=== PATIENT | male | born 1975 | race Caucasian/White ===

== ENCOUNTER 2017-08-15 20:22 | Inpatient (IN) | payer MEDICAID ==
[~2017-08-15] VITALS: Ht 185.4 cm; Wt 112.1 kg
[~2017-08-15 20:22] MED LIST: ALBUTEROL0.09 MG/Ac IH; CIPRO 500MG TA500 MG PO; DICLOFENAC 50MG50 MG PO; DICLOFENAC SODI75 M2 PO; FLAGYL 500MG.500 MG PO; GABAPENTIN300 MG PO; GABAPENTIN800 MG PO; HYDROCHLOROTHIA25 M1 PO; HYDROCODONE-APA1 TA1 PO; HYDROCODONE-APA1 TA2 PO; IBUPROFEN800 MG PO; LASIX20 MG PO; LEVAQUIN750 MG PO; LORAZEPAM0.5 MG/TAB FT; LORTAB 5/500 501 TAB PO; LOVENOX 150150 MG/ML SC; METOPROLOL25 MG PO; MOTRIN600 M1 PO; MOTRIN600 MG PO; NOMEDS XX; PERCOCET 325 MG1 TA3 PO; PHENERGAN 25MG.25 M1 PO; POTASSIUM CHLO10 ME3 PO; PRILOSEC20 M1 PO; TOPROL XL 25MG25 MG PO; TYLENOL W/CODEI1 TA2 PO; ZITHROMAX TRI-500 MG PO; ZOFRAN ODT8 MG PO
[2017-08-15 20:26] VITALS: BP 137/78
[2017-08-15] MEDS ORDERED: AMLO5TAB PO (20:33)
[2017-08-15] MEDS ORDERED: [UNRECOGNIZED DRUG - OTHER] PO (20:34)
[2017-08-15 21:12] LABS: URINE BILIRUBIN - DIPSTICK NEGATIVE (NEG); URINE BLOOD NEGATIVE (NEG)
[2017-08-15 21:17] LABS: HEMOGLOBIN 14.1 g/dL (14.1-18.0); LYMPH # 3.4 K/mm3 (0.7-4.5)
--- NOTE | 2017-08-15 21:17 | Emergency Room Report ---
History of Present Illness Time Seen by [id number] Presenting Problem in Triage Pt arrived:Walked Presenting Problem:C/O SEVERE ABDOMINAL PAIN X 6 DAYS WITH VOMITING. C/O CONSTIPATION. LAST BM 08/14/17. STATES STOOL WAS BROWN/BLACK. 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 Y Clinical Suspician of Infection? Y Mental Status: 1 - Regular (Normal Baseline) Sepsis Risk:Low Sepsis Risk Have you (or family members/close friends) recently traveled outside the [place]? N If Yes, where/when: Have you had exposure to infectious disease within the past month? N TB? Other? Specify: Source patient, RN notes reviewed, family, old records Exam Limitations no limitations Comment pt with upper abd pain which has been progressive over the last few days with no gross melena - used pepto and multiple otc meds - has hx of gerd and on meds - no etoh Cardiac Chest Pain Chest pain indicative of cardiac No Timing/Duration this evening Severity moderate ALLERGIES Coded Allergies: codeine (RASH, N/V 11/05/15) heparin (DIFF BREATHING 11/05/15) Home Medications Active Scripts Metoprolol Succinate Xl (Toprol Xl) 25 MG PO DAILY #30 TAB Ref 1 Prov: 11/05/15 Reported Medications Gabapentin 300 MG PO TID #90 CAPSULE Amlodipine Besylate (Amlodipine) 5 MG PO DAILY #30 RANITIDINE HCL (Ranitidine HCl) 75 MG PO DAILY #30 History Medical History General CAD? No Angina: No AK: No Hypertension? Yes Hyperlipidemia? No CHF? No DVT? No PE? Yes COPD? No Asthma? No Anemia? No GERD? No Gastric ulcers? No GI Bleed? No Hernia? No Thyroid Problems? No Hypothyroidism? No CVA? No Seizures? No Diabetes? No Renal Insuffiency? No End Stage Renal Disease? No UTI? No Stones? No BPH? No GB Disease: Yes Nephritic Syndrome? No Asplenia? No Hepatitis? No Sickle Cell Disease? No Arthritis? Yes Migraines? No Cataracts? No Glaucoma? No MRSA? Yes HIV? No TB? No Anxiety? No Depression? No Cancer? No Immunization Hx DT/Tetanus 5-10 Years Ago Flu Refused Pneumonia Refuses Surgical Hx Previous Surgery?Y LEFT FOOT/ANKLE FX REPAIR GALLBLADDER Family History Family Hx Diabetes Yes CAD Yes Hypertension Yes Hyperlipidemia Yes Cancer Yes TB No Social History Smoking Hx Smoker: Current Every Day Smoker Tobacco: Yes Type Cigarettes Packs/day 1 1/2 - 2 Packs Alcohol Alcohol: No Drugs none Review of Systems All Other Systems Reviewed and Negative Constitutional denies fever Eyes denies drainage ENT denies: ear discharge, epistaxis, throat pain. Respiratory denies cough, denies wheezing Cardiovascular denies chest pain, denies syncope Gastrointestinal see HPI, abdominal pain, denies diarrhea, nausea, vomiting Genitourinary denies: dysuria, frequency, hesitancy, hematuria. Musculoskeletal denies back pain, denies joint pain, denies joint swelling, denies neck pain Skin denies rash Psychiatric/Neurological denies headache, denies seizure Physical Exam Vital Signs Vital Signs Date Time Temp Pulse Resp B/P Pulse O2 O2 Flow FiO2 Ox Delivery Rate 08/15 2139 98.5 91 26 139/76 100 08/15 2132 20 08/15 2026 98.2 85 20 137/78 96 - WBC >12,000 or <4,000 or 10% bands? 2 or more SIRS Criteria Met? B/P:139/76 MAP:97 Creatinine >2.0? UA output<0.5ml/kg/hr for 2 hrs? Platelet count >100,000? Lactate >2.0mmol/1? INR >1.2 or PTT > than 60 sec? Evidence of Organ Dysfunction? Provider documented clinical suspician of infection? Y Sepsis Criteria Count: 1 Sepsis Risk: Low Sepsis Risk General Appearance no apparent distress Eye Exam - bilateral eye PERRL, bilateral eye EOMI Comment no icterus Ear, Nose, Throat normal ENT inspection Neck supple Respiratory Status No: respiratory distress. Lung Sounds bilateral: lungs clear. 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 No Results/Orders Laboratory Tests 08/15/17 2100: Lactic Acid 1.2 08/15/17 2100: Triglycerides Pending, Cholesterol Pending, LDL Cholesterol Pending, VLDL Cholesterol Pending, HDL Cholesterol Pending 08/15/17 2100: Sodium 137, Potassium 3.9, Chloride 101, Carbon Dioxide 28, BUN 8, Creatinine 1.0, Estimated Creat Clear 142, Estimated GFR (MDRD) 82, Glucose 108 H, Calcium 9.2, Total Bilirubin 0.1 L, AST 28, ALT 41, Alkaline Phosphatase 88, Total Protein 7.4, Albumin 3.6, Globulin 3.8 H, Albumin/Globulin Ratio 0.9 L, Amylase 89, Lipase 1041 H, WBC 11.9 H, RBC 4.46 L, Hgb 14.1, Hct 41.4 L, MCV 92.9, RDW 14.1, Plt Count 265, MPV 8.8, Gran % 62.3, Gran # 7.4, Lymphocytes % 29.0, Monocytes % 5.9, Eosinophils % 2.4, Basophils % 0.4, Lymphocytes # 3.4, Monocytes # 0.7, Eosinophils # 0.3, Basophils # 0.1, PUBS MCHC 34.1, MCH 31.7 H , Urine Color YELLOW, Urine Appearance CLEAR, Urine pH 7.0, Ur Specific [place] 1.010, Urine Protein NEGATIVE, Urine Ketones NEGATIVE, Urine Blood NEGATIVE, Urine Nitrate NEGATIVE, Urine Bilirubin NEGATIVE, Urine Urobilinogen 0.2, Ur Leukocyte Esterase NEGATIVE, Urine RBC NONE, Urine WBC OCC, Ur Squamous Epith Cells 3-5, Urine Bacteria TRACE, Urine Glucose NEGATIVE Current Medication Orders Sig/Lazaro Start time Last Medication Dose Route Stop Time Status Admin Metoclopramide HCl 0 .STK-MED ONE 08/15 2136 DC .ROUTE Famotidine 20 MG ONCE ONE 08/15 2130 DC 08/15 IV 08/15 Metoclopramide HCl 10 MG ONCE ONE 08/15 2130 DC 08/15 IVP 08/15 Morphine Sulfate 4 MG ONCE ONE 08/15 2130 DCr 08/15 IV 08/15 Ondansetron HCl 4 MG ONCE ONE 08/15 2130 DC 08/15 IV 08/15 Sodium Chloride 10 ML PRN PRN 08/15 2130 AC IV 08/16 2116 Sodium Chloride 8 ML ONCE ONE 08/15 2130 DC 08/15 IV 08/15 Famotidine 0 .STK-MED ONE 08/15 2126 DC IV Ondansetron HCl 0 .STK-MED ONE 08/15 2126 DC .ROUTE Sodium Chloride 0 .STK-MED ONE 08/15 2126 DC IV Morphine Sulfate 0 .STK-MED ONE 08/15 2125 DCr .ROUTE Sodium Chloride 1,000 ML .STK-MED ONE 08/15 2108 DC IV Sodium Chloride 1,000 ML .Q1H1M 08/15 2045 DC 08/15 IV 08/15 Sodium Chloride 10 ML PRN PRN 08/15 2045 AC IV 08/16 2036 Orders Procedure Date/time Status DIET-NOTHING BY MOUTH 08/16 B Active LIPID PROFILE 08/15 2200 Active Decision to admit 08/15 2200 Active IV SALINE LOCK 08/[address] ABD/PELVIS REQ 08/15 2036 Complete CULTURE, BLOOD 08/15 2036 Active URINALYSIS/COMPLETE 08/15 2036 Complete LIPASE 08/15 2036 Complete LACTIC ACID 08/15 2036 Complete CBC WITH AUTO DIFF 08/15 2036 Complete CHEM 12 PROFILE 08/15 2036 Complete AMYLASE 08/15 2036 Complete XRAY/CT/US XRAY/CT/US CT abdomen, pelvis CT interpretation by discussed w/radiologist Time results known: 2216 CT Results abnormal (pancreatitis) Departure Departure Time of Disposition 2216 Disposition Still a Patient Clinical Impression Primary Impression: Pancreatitis, acute Qualifiers: Pancreatitis type: unspecified pancreatitis type Acute pancreatitis complication: unspecified Qualified Code: K85.90 - Acute pancreatitis without necrosis or infection, unspecified Condition STABLE Additional Instructions discussed with dr blessing YU Critical Care Critical Care No at [id number]
--- NOTE | 2017-08-15 21:48 | RADIOLOGY REPORT PS360 ---
CT ABD PELVIS W/O CONTRAST HISTORY: ABD PAIN Patient Age: 42 years: Male Ordering Physician: Gael Hummel MD TECHNIQUE: Helical CT scanning through abdomen and pelvis with no oral nor IV contrast utilized. Sagittal and coronal reconstructions on CT workstation. COMPARISON :Previous CT abdomen pelvis August 2015. FINDINGS Lung bases no acute findings. Minimal linear scarring right CP angle right base Abdomen pelvis. The lack of oral and IV contrast decreases sensitivity Liver unremarkable. Spleen unremarkable. Adrenal satisfactory. Gallbladder is been removed. The. Kidneys. No urinary tract calculi nor obstruction. Pancreas. Subtle Diffuse hazy appearance in the peripancreatic fat, most compatible with pancreatitis. aorta Clinical correlation required. Associated some subtle hazy changes seen extending inferiorly from the pancreas & just anterior to the. No pseudocyst. There are no no fluid collections. No hemorrhagic areas. : No biliary or pancreatic ductal dilatation. No calcifications are seen along the common duct nor at head of pancreas Pelvis urinary bladder appears satisfactory. Normal prostate. Osseous structures unremarkable. Moderate fluid throughout small bowel but no bowel dilatation. Moderate stool throughout large bowel. Appendix normal terminal ileum unremarkable IMPRESSION 1. Slight Hazy appearance in the fat about the pancreas likely reflecting pancreatitis. Clinical correlation required .. Acute pancreatitis with No complicating features evident . No ductal dilatation 2. Cholecystectomy..
--- OUTSIDE RECORDS SUMMARY | 2017-08-15 22:08 | External Medical Summary Rpt | CCD ---
Demographics Preferred Language Slovenian Marital Status Unknown Confucianism Affiliation Unknown Race Unknown Ethnic Group Unknown Author Author , TALAT GILLILAND Address Unknown Phone Immunization No patient found.
--- OUTSIDE RECORDS SUMMARY | 2017-08-15 22:08 | External Medical Summary Rpt | CCD ---
Demographics Preferred Language Cymro Marital Status Unknown [facility] Affiliation Unknown Race Unknown Ethnic Group Unknown Author Author , TALAT GILLILAND Address Unknown Phone Immunization No patient found.
--- OUTSIDE RECORDS SUMMARY | 2017-08-15 22:08 | External Medical Summary Rpt | CCD ---
Author Author Conduent Organization Condu[employer] Address Unknown Phone Unavailable Purpose Continuity of Care Document - through 2016
--- OUTSIDE RECORDS SUMMARY | 2017-08-15 22:08 | External Medical Summary Rpt | CCD ---
Author Author , TALAT GILLILAND Address Unknown Phone [email or web address] Care Team Providers Care Forest Ecologist Name Role Phone ISABELL GILLIS MD, Unavailable Unavailable ISABELL Kelly MD, Unavailable Unavailable Masha DICKEY DO, Unavailable Unavailable KORI DICKEY DO Purpose Continuity of Care Document - 06-24-2013 through 2016 Problems Code Diagnosis DOS Provider Status K21.9 Gastro-esop 02-25-2017 hageal reflux disease without esophagitis I10 Essential 02-25-2017 (primary) hypertensio n 305.1 305.1 10-16-2013 [place] TOBACCO USE [facility] 486 486 10-16-2013 [place] PNEUMONIA, [facility] ORGANISM Hospital NOS 401.9 401.9 08-20-2013 [place] HYPERTENSIO [facility] 882.0 882.0 OPEN 08-20-2013 [place] WOUND OF [facility] E917.9 E917.9 08-20-2013 [place] STRUCK BY [facility] OBJ/PERSON Hospital [facility] V06.1 V06.1 08-20-2013 [place] DIPHTHERIA- [facility] TETANUS-PER Hospital TUSSIS, COMBINED [DTP] [DTAP] V14.8 V14.8 08-20-2013 [place] HX-DRUG 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 Ac 5- ti 3( ve 2. 5) MG /3 ML AD 49 11 0 No AC 28 -0 EL 10 7- Lo 40 20 ng TD 01 13 er AP 0 Ac ti AL ve LI 00 11 0 No DO 40 -0 CA 93 7- Lo IN 17 20 ng E 80 13 er 1% 1 -E Ac PI ti ve 1: 10 0, 00 0 TR 65 11 0 No AM 16 -0 AD 20 7- Lo OL 62 20 ng 71 13 er HC 0 L Ac 50 ti ve MG TA BL ET Sa 63 09 0 No li 80 -1 ne 70 1- Lo 10 20 ng Fl 07 13 er us 5 h Ac 10 ti ML ve Sy ri ng e 63 09 0 No PI 73 -1 RI 90 1- Lo N 43 20 ng 81 40 13 er 1 MG Ac ti CH ve EW AB LE TA BL ET Vital Signs 10-16-2013 19:30 Name Value Interpretat Reference Comment ion Range Body 98.8 [degF] Temperature BP 66 mm[Hg] Diastolic BP Systolic 136 mm[Hg] Heart 91 /min Rate/Pulse O2% 96 % Respiratory 21 /min Rate 10-16-2013 19:29 Name Value Interpretat Reference Comment ion Range Body 98.8 [degF] Temperature 10-16-2013 18:57 Name Value Interpretat Reference Comment ion Range BP 85 mm[Hg] Diastolic BP Systolic 141 mm[Hg] Heart 76 /min Rate/Pulse O2% 96 % Respiratory 20 /min Rate 08-20-2013 18:48 Name Value Interpretat Reference Comment ion Range Body 98.2 [degF] Temperature BP 94 mm[Hg] Diastolic BP Systolic 144 mm[Hg] Heart 85 /min Rate/Pulse O2% 96 % Respiratory 20 /min Rate 08-20-2013 17:42 Name Value Interpretat Reference Comment ion Range BP 90 mm[Hg] Diastolic BP Systolic 132 mm[Hg] Heart 83 /min Rate/Pulse O2% 96 % Respiratory 20 /min Rate 06-24-2013 19:58 Name Value Interpretat Reference Comment ion Range Body 98.3 [degF] Temperature BP 89 mm[Hg] Diastolic BP Systolic 157 mm[Hg] Heart 75 /min Rate/Pulse O2% 98 % Respiratory 16 /min Rate 06-24-2013 18:20 Name Value Interpretat Reference Comment ion Range BP 91 mm[Hg] Diastolic BP Systolic 141 mm[Hg] Heart 74 /min Rate/Pulse O2% 96 % Respiratory 18 /min Rate Results Labs Lab Lab Date Result Refere Interp Status Commen Order Detail nces retati t Range on Urinalysis dipstick W Reflex Microscopic panel in Urine (08-15-2017 21:00) Bacteri TRACE O complet a 017 ed [Presen 21:00 ce] in Urine sedimen t by Light microsc opy Erythro NONE 0 complet cytes 017 ed [Presen 21:00 ce] in Urine sedimen t by Light microsc opy Epithel 3-5 OCC complet ial 017 ed cells.s 21:00 quamous [Presen ce] in Urine sedimen t by Microsc opy high power field Urinalysis dipstick W Reflex Microscopic panel in Urine (08-15-2017 21:00) Appeara CLEAR CLEAR complet nce of 017 ed Urine 21:00 Bilirub NEGATIV NEG complet in 017 E ed [Presen 21:00 ce] in Urine by Test strip Erythro NEGATIV NEG complet cytes 017 E ed [Presen 21:00 ce] in Urine Color YELLOW YELLOW complet of 017 ed Urine 21:00 Ketones NEGATIV NEG complet 017 E ed [Presen 21:00 ce] in Urine by Automat ed test strip Mucus NEGATIV NEG complet [Presen 017 E ed ce] in 21:00 Urine sedimen t by Light microsc opy Nitrite NEGATIV NEG complet 017 E ed [Presen 21:00 ce] in Urine by Test strip Urobili 0.2 NEG complet nogen 017 ed [Presen 21:00 ce] in Urine by Test strip STREP SCREEN (RAPID) (10-16-2013 18:20) STREP NEGATIV complet SCREEN 014 E ed (RAPID) 18:20 COMPREHENSIVE METABOLIC PANEL (06-24-2013 17:50) Glucose 11- 89 74-106 complet 013 mg/dL ed Bld-mCn 17:50 c BUN 06-24- 5 mg/dL 7-18 complet Bld-mCn 013 ed c 17:50 Creat 06-24- 1.1 0.8-1.3 complet SerPl-m 013 mg/dL ed Cnc 17:50 ESTIMAT 06-24- 139 50-200 complet ED 013 ML/MIN ed CREATIN 17:50 INE CLEARAN CE GFR 06-24- 75 Greater complet (ESTIMA 013 ML/MIN than ed KAT) 17:50 60 Sodium 11- 140 136-145 complet SerPl-s 013 mmoL/L ed Cnc 17:50 Potassi 3.2 3.5-5.1 complet um 013 mmoL/L ed SerPl-s 17:50 Cnc Chlorid 104 98-107 complet e 013 mmoL/L ed SerPl-s 17:50 Cnc CO2 06-24- 27 21.0-32 complet SerPl-s 013 mmoL/L .0 ed Cnc 17:50 Calcium 11- 8.0 8.5-10. complet 013 mg/dL 1 ed SerPl-m 17:50 Cnc Prot 06-24- 6.3 6.4-8.2 complet SerPl-m 013 gm/dL ed Cnc 17:50 Albumin 06-24- 3.3 3.4-5.0 complet 013 gm/dL ed SerPl-m 17:50 Cnc Globuli 06-24- 3.0 1.3-3.2 complet n 013 gm/dL ed Ser-mCn 17:50 c Albumin 11- 1.1 UNK 1.1-1.8 complet /Glob 013 ed SerPl-m 17:50 Rto Bilirub 06-24- 0.2 0.2-1.0 complet 013 mg/dL ed SerPl-m 17:50 Cnc AST 11- 42 U/L 15-37 complet SerPl-c 013 ed Cnc 17:50 ALT 11- 62 U/L 30-65 complet SerPl-c 013 ed Cnc 17:50 ALP 11- 97 U/L 50-136 complet SerPl-c 013 ed Cnc 17:50 BNP Bld-mCnc (06-24-2013 17:50) BNP -11-2 125 0-100 complet Bld-mCn 013 pg/mL ed c 17:50 URIC ACID (06-24-2013 17:50) URIC -11-2 6.7 2.6-7.2 complet ACID 013 mg/dL ed 17:50 D Dimer PPP (06-24-2013 17:50) D Dimer -11-2 323 0-400 complet PPP 013 ng/mL ed 17:50 CBC with AUTO DIFF (06-24-2013 17:50) WBC # -11-2 9.7 4.8-10. complet Bld 013 K/MM3 8 ed Auto 17:50 RBC # -11-2 3.96 4.6-6.2 complet Bld 013 M/mm3 ed Auto 17:50 Hgb -11-2 12.4 14.1-18 complet Bld-mCn 013 g/dL .0 ed c 17:50 Hct Fr 06-24-2 35.7 % 42.0-52 complet Bld 013 .0 ed 17:50 MCV RBC -11-2 90.0 fl 82.2-97 complet 013 .8 ed 17:50 MCH RBC -11-2 31.3 pg 27-31.2 complet Qn 013 ed Auto 17:50 MEAN -11-2 34.7 31.8-35 complet CORPUSC 013 g/dl .4 ed ULAR 17:50 HGB CONC RDW RBC -11-2 15.2 % 11.5-17 complet Auto 013 .5 ed 17:50 Platele -11-2 235 142-424 complet t Bld 013 K/mm3 ed Ql 17:50 Manual MEAN -11-2 7.9 fl 7.4-10. complet PLATELE 013 4 ed T 17:50 VOLUME Granulo -11-2 67.6 % 37.0-80 complet cytes 013 .0 ed Fr Bld 17:50 Auto LYMPH % -11-2 22.0 % 10-50 complet 013 ed 17:50 Monocyt -11-2 5.9 % 1.7-9.3 complet es Fr 013 ed Bld 17:50 Auto Eosinop -11-2 4.0 % 0.1-12. complet hil Fr 013 0 ed Bld 17:50 Auto Basophi 06-24-2 0.6 % 0.1-2.0 complet ls Fr 013 ed Bld 17:50 Auto Granulo 06-24- 6.6 1.3-8.0 complet cytes # 013 K/mm3 ed Bld 17:50 Auto Lymphoc 06-24-2 2.1 0.7-4.5 complet ytes Fr 013 K/mm3 ed Bld 17:50 Auto Monocyt 06-24-2 0.6 0.1-1.0 complet es # 013 K/mm3 ed Bld 17:50 Auto Eosinop 06-24- 0.4 0.0-0.4 complet hil # 013 K/mm3 ed Bld 17:50 Auto Basophi 06-24-2 0.1 0-0.2 complet ls # 013 K/MM3 ed Bld 17:50 Auto Procedures Procedure DOS Code Location Performer Comment CLOSURE 86.59 Masha [facility] SUBCUTANE OUS NEC Encounters Encounter Start End Date Code Location Performer Type Date Emergency WILIAM DICKEY DO (ER) 4 18:30 4 19:31 [facility] Emergency WILIMA Kelly MD (ER) 3 17:50 3 18:49 [facility] Emergency WILIAM GILLIS MD (ER) 3 18:03 3 20:00 [facility]
--- OUTSIDE RECORDS SUMMARY | 2017-08-15 22:08 | External Medical Summary Rpt | CCD ---
Author Author , TALAT GILLILAND Address Unknown Phone [email or web address] Care Team Providers Care Scrub Technician Name Role Phone ISABELL GILLIS MD, Unavailable Unavailable ISABELL Kelly MD, Unavailable Unavailable Masha DICKEY DO, Unavailable Unavailable KORI DICKEY DO Purpose Continuity of Care Document - 06-24-2013 through 2016 Problems Code Diagnosis DOS Provider Status K21.9 Gastro-esop 02-25-2017 hageal reflux disease without esophagitis I10 Essential 02-25-2017 (primary) hypertensio n 305.1 305.1 10-16-2013 [place] TOBACCO USE [facility] 486 486 10-16-2013 [place] PNEUMONIA, [facility] ORGANISM Hospital NOS 401.9 401.9 08-20-2013 [place] HYPERTENSIO [facility] 882.0 882.0 OPEN 08-20-[address] [place] [address] OF [facility] E917.9 E917.9 08-20-2013 [place] STRUCK BY [facility] V06.1 V06.1 08-20-2013 [place] DIPHTHERIA- [facility] TETANUS-PER Hospital TUSSIS, COMBINED [DTP] [DTAP] V14.8 V14.8 08-20-2013 [place] HX-DRUG [facility] ALLERGY [facility] 276.8 276.8 06-24-[address] [place] [address] 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
--- OUTSIDE RECORDS SUMMARY | 2017-08-15 22:09 | External Medical Summary Rpt ---
Author Author [employer] Vang, [employer] Organization [employer] Address Unknown Phone Unavailable Results Urinalysis dipstick W Reflex Microscopic panel in Urine Observa Value Referen Units Interpr Notes Date tion ce etation Range Appeara CLEAR CLEAR No No No Nov 2 nce of informa informa informa 2017 Urine tion in tion in tion in 9:00 PM source source source data data data Bacteri TRACE O No No No Nov 2 a informa informa informa 2017 [Presen tion in tion in tion in 9:00 PM ce] in source source source Urine data data data sedimen t by Light microsc opy Bilirub NEGATIV NEG No No No Nov 2 in E informa informa informa 2017 [Presen tion in tion in tion in 9:00 PM ce] in source source source Urine data data data by Test strip Erythro NEGATIV NEG No No No Nov 2 cytes E informa informa informa 2017 [Presen tion in tion in tion in 9:00 PM ce] in source source source Urine data data data Color YELLOW YELLOW No No No Nov 2 of informa informa informa 2017 Urine tion in tion in tion in 9:00 PM source source source data data data Glucose NEG No No No Nov 2 [Mass/vol informati informati informati 2017 9:00 ume] in on in on in on in PM Urine by source source source Test data data data strip Ketones NEGATIV NEG mg/dL No No Nov 2 E informa informa 2017 [Presen tion in tion in 9:00 PM ce] in source source Urine data data by Automat ed test strip Mucus NEGATIV NEG No No No Nov 2 [Presen E informa informa informa 2016 ce] in tion in tion in tion in 9:00 PM Urine source source source sedimen data data data t by Light microsc opy Nitrite NEGATIV NEG No No No Nov 2 E informa informa informa 2017 [Presen tion in tion in tion in 9:00 PM ce] in source source source Urine data data data by Test strip pH of 5.0 - 8.5 No Normal No Nov 2 Urine informati informati 2017 9:00 on in on in PM source source data data Protein NEG mg/dL No No Nov 2 [Mass/vol informati informati 2017 9:00 ume] in on in on in PM Urine by source source Automated data data test strip Erythro NONE 0 rbc/hpf No No Nov 2 cytes informa informa 2016 [Presen tion in tion in 9:00 PM ce] in source source Urine data data sedimen t by Light microsc opy Specific 1.005 - No Normal No Nov 2 gravity 1.030 informati informati 2017 9:00 of Urine on in on in PM source source data data Epithel 3-5 OCC #/hpf No No Nov 2 ial informa informa 2017 cells.s tion in tion in 9:00 PM quamous source source data data [Presen ce] in Urine sedimen t by Microsc opy high power field Urobili 0.2 NEG E.U./dL No No Nov 2 nogen informa informa 2016 [Presen tion in tion in 9:00 PM ce] in source source Urine data data by Test strip Leukocyte O wbc/hpf No No Nov 2 s informati informati 2017 9:00 [#/volume on in on in PM ] in source source Urine data data Lactate [Moles/volume] in Blood Observa Value Referen Units Interpr Notes Date tion ce etation Range Lactate 0.4 - 2.0 mmol/L Normal No Nov 2 [Moles/vo informati 2017 9:00 lume] in on in PM Blood source data Urinalysis dipstick W Reflex Microscopic panel in Urine Observa Value Referen Units Interpr Notes Date tion ce etation Range Appeara CLEAR CLEAR No No No Nov 2 nce of informa informa informa 2017 Urine tion in tion in tion in 9:00 PM source source source data data data Bilirub NEGATIV NEG No No No Nov 2 in E informa informa informa 2017 [Presen tion in tion in tion in 9:00 PM ce] in source source source Urine data data data by Test strip Erythro NEGATIV NEG No No No Nov 2 cytes E informa informa informa 2017 [Presen tion in tion in tion in 9:00 PM ce] in source source source Urine data data data Color YELLOW YELLOW No No No Nov 2 of informa informa informa 2017 Urine tion in tion in tion in 9:00 PM source source source data data data Glucose NEG No No No Nov 2 [Mass/vol informati informati informati 2016 9:00 ume] in on in on in on in PM Urine by source source source Test data data data strip Ketones NEGATIV NEG mg/dL No No Nov 2 E informa informa 2017 [Presen tion in tion in 9:00 PM ce] in source source Urine data data by Automat ed test strip Mucus NEGATIV NEG No No No Nov 2 [Presen E informa informa informa 2016 ce] in tion in tion in tion in 9:00 PM Urine source source source sedimen data data data t by Light microsc opy Nitrite NEGATIV NEG No No No Nov 2 E informa informa informa 2016 [Presen tion in tion in tion in 9:00 PM ce] in source source source Urine data data data by Test strip pH of 5.0 - 8.5 No Normal No Nov 2 Urine informati informati 2017 9:00 on in on in PM source source data data Protein NEG mg/dL No No Nov 2 [Mass/vol informati informati 2017 9:00 ume] in on in on in PM Urine by source source Automated data data test strip Specific 1.005 - No Normal No Nov 2 gravity 1.030 informati informati 2017 9:00 of Urine on in on in PM source source data data Urobili 0.2 NEG E.U./dL No No Nov 2 nogen informa informa 2017 [Presen tion in tion in 9:00 PM ce] in source source Urine data data by Test strip Amylase [Enzymatic activity/volume] in Serum or Plasma Observa Value Referen Units Interpr Notes Date tion ce etation Range Amylase 25 - 115 U/L Normal No Nov 2 [Enzymati informati 2017 9:00 c on in PM activity/ source volume] data in Serum or Plasma Comprehensive metabolic 2000 panel in Serum or Plasma Observa Value Referen Units Interpr Notes Date tion ce etation Range Albumin/G 1.1 - 1.8 No Low No Nov 2 lobulin informati informati 2016 9:00 [Mass on in on in PM ratio] in source source Serum or data data Plasma Albumin 3.4 - 5.0 gm/dL Normal No Aug 2 [Mass/vol informati 2017 9:00 ume] in on in PM Serum or source Plasma data Alkaline 46 - 116 U/L Normal No Aug 2 phosphata informati 2017 9:00 se on in PM [Enzymati source c data activity/ volume] in Serum or Plasma Bilirubin 0.2 - 1.0 mg/dL Low No Aug 2 .total informati 2016 9:00 [Mass/vol on in PM ume] in source Serum or data Plasma Urea 7 - 18 mg/dL Normal No Aug 2 nitrogen informati 2016 9:00 [Mass/vol on in PM ume] in source Serum or data Plasma Calcium 8.5 - mg/dL Normal No Aug 2 [Mass/vol 10.1 informati 2016 9:00 ume] in on in PM Serum or source Plasma data Chloride 98 - 107 mmoL/L Normal No Aug 2 [Moles/vo informati 2016 9:00 lume] in on in PM Serum or source Plasma data Carbon 21.0 - mmoL/L Normal No Aug 2 dioxide, 32.0 informati 2017 9:00 total on in PM [Moles/vo source lume] in data Serum or Plasma Creatinin 0.70 - mg/dL Normal No Aug 2 e 1.30 informati 2016 9:00 [Mass/vol on in PM ume] in source Serum or data Plasma Creatinin 50 - 200 ML/MIN Normal No Nov 2 e renal informati 2017 9:00 clearance on in PM source predicted data by Cockcroft -Gault formula Estimated >60 ML/MIN No REFERENCE Nov 2 informati RANGE: 2017 9:00 glomerula on in >60 PM r source ML/MIN/1. filtratio data 73 SQUARE n rate METERSIf (GF this patient is -A merican, then multiply theresult by 1.210. Globulin 1.3 - 3.2 gm/dL High No Aug 2 [Mass/vol informati 2016 9:00 ume] in on in PM Serum source data Glucose 74 - 106 mg/dL High No Nov 2 [Mass/vol informati 2016 9:00 ume] in on in PM Serum or source Plasma data Potassium 3.5 - 5.1 mmoL/L Normal No Aug 2 informati 2016 9:00 [Moles/vo on in PM lume] in source Serum or data Plasma Sodium 136 - 145 mmoL/L Normal No Aug 2 [Moles/vo informati 2016 9:00 lume] in on in PM Serum or source Plasma data Aspartate 15 - 37 U/L Normal No Aug 15 informati 2016 9:00 aminotran on in PM sferase source [Enzymati data c activity/ volume] in Serum or Plasma Alanine 12 - 78 U/L Normal No Aug 15 aminotran informati 2016 9:00 sferase on in PM [Enzymati source c data activity/ volume] in Serum or Plasma Protein 6.4 - 8.2 gm/dL Normal No Aug 2 [Mass/vol informati 2016 9:00 ume] in on in PM Serum or source Plasma data Lipase [Enzymatic activity/volume] in Serum or Plasma Observa Value Referen Units Interpr Notes Date tion ce etation Range Lipase 73 - 393 U/L High Aug 15 [Enzymati NOTIFICAT 2016 9:00 c ION PM activity/ RESULT volume] in Serum or Plasma CBC W Auto Differential panel in Blood Observa Value Referen Units Interpr Notes Date tion ce etation Range Basophils 0 - 0.2 K/MM3 Normal No Aug 15 informati 2016 9:00 [#/volume on in PM ] in source Blood by data Automated count Basophils 0.1 - 2.0 % Normal No Aug 15 informati 2016 9:00 leukocyte on in PM s in source Blood by data Automated count Eosinophi 0.0 - 0.4 K/mm3 Normal No Aug 2 ls informati 2016 9:00 [#/volume on in PM ] in source Blood by data Automated count Eosinophi 0.1 - % Normal No Aug 15 ls/100 12.0 informati 2016 9:00 leukocyte on in PM s in source Blood by data Automated count Granulocy 1.3 - 8.0 K/mm3 Normal No Aug 2 robbin informati 2016 9:00 [#/volume on in PM ] in source Blood by data Automated count Granulocy 37.0 - % Normal No Aug 15 robbin/100 80.0 informati 2016 9:00 leukocyte on in PM s in source Blood by data Automated count Hematocri 42.0 - % Low No Aug 2 t [Volume 52.0 informati 2016 9:00 on in PM Fraction] source of Blood data Hemoglobi 14.1 - g/dL Normal No Aug 2 n 18.0 informati 2017 9:00 [Mass/vol on in PM ume] in source Blood data Lymphocyt 0.7 - 4.5 K/mm3 Normal No Aug 2 es informati 2016 9:00 [#/volume on in PM ] in source Unspecifi data ed specimen by Automated count Lymphocyt 10 - 50 % Normal No Aug 2 es informati 2016 9:00 [#/volume on in PM ] in source Unspecifi data ed specimen by Automated count Erythrocy 27 - 31.2 pg High No Aug 2 te mean informati 2016 9:00 corpuscul on in PM ar source hemoglobi data n [Entitic mass] Erythrocy 31.8 - g/dl Normal No Aug 15 te mean 35.4 informati 2016 9:00 corpuscul on in PM ar source hemoglobi data n concentra tion [Mass/vol ume] by Automated count Erythrocy 82.2 - fl Normal No Aug 2 te mean 97.8 informati 2016 9:00 corpuscul on in PM ar volume source [Entitic data volume] by Automated count Monocytes 0.1 - 1.0 K/mm3 Normal No Aug 2 informati 2017 9:00 [#/volume on in PM ] in source Blood by data Automated count Monocytes 1.7 - 9.3 % Normal No Aug 2 /100 informati 2016 9:00 leukocyte on in PM s in source Blood by data Automated count Platelet 7.4 - fl Normal No Aug 2 mean 10.4 informati 2017 9:00 volume on in PM [Entitic source volume] data in Blood by Automated count Platelets 142 - 424 K/mm3 Normal No Aug 2 informati 2017 9:00 [#/volume on in PM ] in source Blood data Erythrocy 4.6 - 6.2 M/mm3 Low No Aug 2 robbin informati 2017 9:00 [#/volume on in PM ] in source Amniotic data fluid Erythrocy 11.5 - % Normal No Aug 2 te 17.5 informati 2016 9:00 distribut on in PM ion width source [Entitic data volume] by Automated count Leukocyte 4.8 - K/MM3 High No Nov 2 s 10.8 informati 2017 9:00 [#/volume on in PM ] in source Blood data Testost Observa Value Referen Units Interpr Notes Date tion ce etation Range Testost 157 300 - ng/dL Low Values February 25 erone 890 less 2016 Lvl than 12 9:17 PM ng/dL are not reliabl e as the interme diate precisi on coeffic ient of variati on is > 20%.
[2017-08-15 22:51] VITALS: BP 169/100
[2017-08-15 22:53] VITALS: BP 169/100
[2017-08-16 04:00] VITALS: BP 140/94
[2017-08-16 06:42] LABS: HEMOGLOBIN 13.1 g/dL (14.1-18.0); LYMPH # 2.6 K/mm3 (0.7-4.5); LYMPH % 31.2 % (10-50)
--- NOTE | 2017-08-16 07:25 | PHARMACY CLINIC NOTE ---
Patient Demographics Patient Demographics Admission date: 08/15/17 Date: 08/16/17 Time: 0724 Allergies Coded Allergies: codeine (RASH, N/V 11/05/15) heparin (DIFF BREATHING 11/05/15) HEIGHT- FT: 6 IN: 1.00 K.095 VTE General Information Labs: Laboratory Tests 08/16 08/15 0624 2100 Hematology Hgb (14.1 - 18.0 g/dL) 13.1 L 14.1 Hct (42.0 - 52.0 %) 37.6 L 41.4 L Plt Count (142 - 424 K/mm3) 240 265 Disclaimer The following section includes nursing documentation that has been pulled in for pharmacy review. Patient's VTE score: 3 Patient's VTE Risk: LOW RISK Clinical trial participant? No VTE prophylaxis NQF [id number] VTE prophylaxis ordered? Yes Type of prophylaxis/treatment: KAT at 0724
[2017-08-16 08:00] VITALS: BP 145/93
--- NOTE | 2017-08-16 08:37 | HISTORY AND PHYSICAL REPORT ---
History and Physical ([facility]) Date of admission: 08/15/17 Chief complaint: Abdominal pain History: History of Present Illness: Mr. Johnson is a 42-year-old male with a history of hypertension who began having abdominal pain 6 days ago. He states he's been vomiting off and on and the pain continued to increase, therefore he finally came to the emergency room. He was evaluated and found to have a pancreatitis. He states he has never had this before. He has had his gallbladder removed and he states his cholesterol panel is a little elevated but he does not presently take any medication. He was admitted and he has been NPO. He states that he has a pretty bad headache this morning along with continued abdominal pain. He has not vomited. Past Medical History: Medical History: CAD? No Angina: No [place]: No Hypertension? Yes Hyperlipidemia? No CHF? No DVT? No PE? Yes COPD? No Asthma? No Anemia? No GERD? No Gastric ulcers? No GI Bleed? No Hernia? No Thyroid Problems? No Hypothyroidism? No CVA? No Seizures? No Diabetes? No Renal Insuffiency? No UTI? No Stones? No BPH? No GB Disease: Yes Nephritic Syndrome? No Asplenia? No Hepatitis? No Sickle Cell Disease? No Arthritis? Yes Migraines? No Cataracts? No Glaucoma? No MRSA? Yes HIV? No TB? No Anxiety? No Depression? No Cancer? No Surgical history: Previous Surgery?Y LEFT FOOT/ANKLE FX REPAIR GALLBLADDER Medications: Active Scripts Metoprolol Succinate Xl (Toprol Xl) 25 MG PO DAILY #30 TAB Ref 1 Prov: 11/05/15 Reported Medications Gabapentin (Gabapentin 800MG) 800 MG PO TID Amlodipine Besylate (Amlodipine) 5 MG PO DAILY #30 RANITIDINE HCL (Ranitidine HCl) 75 MG PO DAILY #30 Allergies: Coded Allergies: codeine (RASH, N/V 11/05/15) heparin (DIFF BREATHING 11/05/15) Family History: Family history: Postive for: CAD, DM, HTN, cancer, hyperlipidemia, stroke. Social History: Smoking Hx Tobacco: Yes Smoker: Current Every Day Smoker Type: Cigarettes Packs/day: 1 1/2 - 2 Packs Are you exposed to second hand No Alcohol: Alcohol: No Hx of Drug Use: Drug Use? No Review of Systems: Constitutional Positive for: fatigue, lethargy, malaise, weak. ENT No: nasal congestion, sore throat. Cardiovascular No: chest pain, edema, palpitations. Respiratory No: shortness of air, productive cough (sputum), wheezing. GI Positive for: abdominal pain, nausea, vomitting. No: diarrhea. (male) No: frequency, hematuria. Neurological Positive for: headache. No: dizziness, syncope, weakness. Musculoskeletal No: extremity pain, joint pain, myalgias. Physical Exam: Vital signs: 1ST Vital Signs Result Date Time Pulse Ox 96 08/15 2026 B/P 137/78 08/15 2026 Temp 98.2 08/15 2026 Pulse 85 08/15 2026 Resp 20 08/15 2026 O2 Delivery ROOM AIR 08/15 2253 Exam: General appearance: alert, awake, no acute distress Eyes: EOM's w/normal ROM, PERRLA ENT: nose normal, pharynx normal, tympanic membranes normal, dry mucous membranes Neck: non-tender, no carotid bruit, full range of motion, supple Cardiovascular: regular rate & rhythm Respiratory: clear to auscultation ABD: non-distended, normal bowel sounds, no rebound, soft, no guarding, diffuse ttp Extremities: no peripheral edema Musculoskeletal: equal muscle strength, motor intact, sensation intact Skin: normal color Neuro: normal mood/affect, oriented, speech clear Lab data: Labs: Laboratory Tests 08/16/17 0624: Sodium 139, Potassium 4.1, Chloride 105, Carbon Dioxide 30, BUN 6 L, Creatinine 0.8, Estimated Creat Clear 191, Estimated GFR (MDRD) 106, Glucose 103, Calcium 8.9, Total Bilirubin 0.2, AST 25, ALT 38, Alkaline Phosphatase 80, Total Protein 6.3 L, Albumin 3.0 L, Globulin 3.3 H, Albumin/Globulin Ratio 0.9 L, Amylase 77, Lipase 751 H, WBC 8.4, RBC 4.02 L, Hgb 13.1 L, Hct 37.6 L, MCV 93.6, RDW 14.0, Plt Count 240, MPV 8.2, Gran % 60.1, Gran # 5.1, Lymphocytes % 31.2, Monocytes % 6.2, Eosinophils % 2.0, Basophils % 0.5, Lymphocytes # 2.6, Monocytes # 0.5, Eosinophils # 0.2, Basophils # 0.0, PUBS MCHC 34.7, MCH 32.5 H 08/15/17 2100: Lactic Acid 1.2 08/15/17 2100: Triglycerides 218 H, Cholesterol 228 H, LDL Cholesterol 140.4 H, VLDL Cholesterol 43.6 H, HDL Cholesterol 44.0 08/15/17 2100: Sodium 137, Potassium 3.9, Chloride 101, Carbon Dioxide 28, BUN 8, Creatinine 1.0, Estimated Creat Clear 142, Estimated GFR (MDRD) 82, Glucose 108 H, Calcium 9.2, Total Bilirubin 0.1 L, AST 28, ALT 41, Alkaline Phosphatase 88, Total Protein 7.4, Albumin 3.6, Globulin 3.8 H, Albumin/Globulin Ratio 0.9 L, Amylase 89, Lipase 1041 H, WBC 11.9 H, RBC 4.46 L, Hgb 14.1, Hct 41.4 L, MCV 92.9, RDW 14.1, Plt Count 265, MPV 8.8, Gran % 62.3, Gran # 7.4, Lymphocytes % 29.0, Monocytes % 5.9, Eosinophils % 2.4, Basophils % 0.4, Lymphocytes # 3.4, Monocytes # 0.7, Eosinophils # 0.3, Basophils # 0.1, PUBS MCHC 34.1, MCH 31.7 H , Urine Color YELLOW, Urine Appearance CLEAR, Urine pH 7.0, Ur Specific [place] 1.010, Urine Protein NEGATIVE, Urine Ketones NEGATIVE, Urine Blood NEGATIVE, Urine Nitrate NEGATIVE, Urine Bilirubin NEGATIVE, Urine Urobilinogen 0.2, Ur Leukocyte Esterase NEGATIVE, Urine RBC NONE, Urine WBC OCC, Ur Squamous Epith Cells 3-5, Urine Bacteria TRACE, Urine Glucose NEGATIVE Microbiology 08/15 2100 BLOOD: Anaerobic Blood Culture - RECD 08/15 2100 BLOOD: Aerobic Blood Culture - RECD 08/15 2100 BLOOD: Anaerobic Blood Culture - RECD 08/15 2100 BLOOD: Aerobic Blood Culture - RECD Radiology results: Results: CT abd/pelvis 1. Slight Hazy appearance in the fat about the pancreas likely reflecting pancreatitis. Clinical correlation required. Acute pancreatitis with no complicating features evident. No ductal dilatation 2. Cholecystectomy. Diagnosis(es): 1. Pancreatitis, acute Status: Acute 2. Hypertension Status: Chronic Plan: Will change IVF's today and start on clear liquids. Will start motrin for his QUINTANA. (Kareen Guerra) Diagnosis(es): 1. Pancreatitis, acute Status: Acute 2. Hypertension Status: Chronic Plan: Patient seen and agree with above note. (Topher Chris MD) at 0837 at 0841
[2017-08-16 16:00] VITALS: BP 140/91
--- NOTE | 2017-08-16 16:28 | ACUTE CARE PROGRESS NOTE (QUA) ---
Progress Notes Subjective Date 08/16/17 Time 1626 Note Came to see patient and he has gone outside. Nurse reports he is doing well with clear liquids, had a dose of Dilaudid and slept for several hours today. Assessment/Plan Problem List 1. Pancreatitis, acute Status: Acute 2. Hypertension Status: Chronic This inpt stay is expected to cross 2 MNs from start of care Yes Comments: Advance diet, stop IV dilaudid, recheck labs in the morning, likely home tomorrow with close outpatient f/u with his primary MD. at [phone]
--- NOTE | 2017-08-19 21:22 | DISCHARGE SUMMARY STANDARD ---
Discharge Summary ([facility]2) Date of admission: 08/15/17 Date of discharge: 08/16/17 Problem List: 1. Pancreatitis, acute 2. Hypertension History of present illness: Mr. Johnson is a 42-year-old male with a history of hypertension who began having abdominal pain 6 days prior to admission. He stated he'd been vomiting off and on and the pain continued to increase, therefore he finally came to the emergency room. He was evaluated and found to have a pancreatitis. He stated he had never had this before. He had had his gallbladder removed and he stated his cholesterol panel was a little elevated but he did not presently take any medication. He was admitted and was made NPO. He stated that he had a pretty bad headache along with continued abdominal pain at the time of H&P. He had not vomited. Exam on admission: General appearance: alert, awake, no acute distress Eyes: EOM's w/normal ROM, PERRLA ENT: nose normal, pharynx normal, tympanic membranes normal, dry mucous membranes Neck: non-tender, no carotid bruit, full range of motion, supple Cardiovascular: regular rate & rhythm Respiratory: clear to auscultation ABD: non-distended, normal bowel sounds, no rebound, soft, no guarding, diffuse ttp Extremities: no peripheral edema Musculoskeletal: equal muscle strength, motor intact, sensation intact Skin: normal color Neuro: normal mood/affect, oriented, speech clear Hospital Course: The patient's abdominal CT showed a pancreatitis. His IVF's were increased and he was started on motrin for his QUINTANA. His pancreatic enzymes improved and he was started on clear liquids. His diet was then advanced. Dr. Chris came to see the patient and wanted to keep the patient one more night but the patiet had gone outside. He left AMA without notification. Additional information: Patient left AMA Disposition: Patient left AMA at 0728
== END 2017-08-16 16:15 | disposition left against medical advice (07) | DRG 440 ==
LOC: ER 20:22 → 2ND 22:04
PROVIDERS: Emergency Medicine
DX: K85.90 Acute pancreatitis without necrosis or infection, unspecified (principal); I10 Essential (primary) hypertension
CPT/HCPCS: J2405